=== PATIENT | female | born 1965 | race Caucasian/White ===

== ENCOUNTER 2018-05-04 14:09 | Emergency (ER) | payer SELFPAY ==
[2018-05-04] MEDS ORDERED: KETOROLAC TROMETHAMINE INJ 30 MG/ML VIAL IV ONE (14:37)
[2018-05-04] MEDS ORDERED: SODIUM CHLORIDE 0.9% 1000ML 1,000 ML IVS ONE (14:37)
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
[2018-05-04 14:57] VITALS: TEMP 99.4
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
[2018-05-04] MEDS ORDERED: NEOMYCIN-BACITRACIN-POLYMYXIN 0.9 GM UD TOP ONE (16:47)
[2018-05-04 16:55] VITALS: BP 128/88; O2SAT 98
== END 2018-05-04 17:00 | disposition home or self-care (01) ==
LOC: ER 14:09
DX: S30.1XXA Contusion of abdominal wall, initial encounter (principal); N39.0 Urinary tract infection, site not specified; S50.811A Abrasion of right forearm, initial encounter; V92.03XA Drowning and submersion due to fall off other powered watercraft, initial encounter; Y92.828 Other wilderness area as the place of occurrence of the external cause; Z88.2 Allergy status to sulfonamides
CPT/HCPCS: 36415; 71045; 74177; 80048; 80076; 81001; 85025; J1885; J7030